=== PATIENT | male | born 1990 | race Caucasian/White ===

== ENCOUNTER 2016-10-02 09:40 | Day surgery (SDC) | payer MEDICARE, MEDICAID ==
[~2016-10-02 09:40] MED LIST: LACTATED RINGERS 1000 ML IV PRN; LIDOCAINE 0.5% INJ-PF (5 MG/ML) 50 ML SDV SUBCUT PRN
[2016-10-02] MEDS ORDERED: LIDOCAINE 2%/EPINEPHRINE INJ 1.7 ML CARTRIDGE ONE (10:23)
[2016-10-02] MEDS ORDERED: BUPIVACAINE HCL 0.5%/EPI 1:200000 INJ 1.8 ML CARTRIDGE ONE (10:23)
[2016-10-02] MEDS ORDERED: FENTANYL CITRATE INJ/PF 250 MCG/5 ML AMPULE ONE (12:03)
[2016-10-02] MEDS ORDERED: PROPOFOL INJ 200 MG/20 ML VIAL IV ONE (12:04)
[2016-10-02] MEDS ORDERED: MIDAZOLAM 2 MG/2 ML INJ ONE (12:04)
--- NOTE | 2016-10-02 13:15 | Operative Report ---
Operative Report DATE OF SURGERY: 10/02/16 PREOPERATIVE DIAGNOSIS: Dental caries POSTOPERATIVE DIAGNOSIS: Same OPERATION: Surgical removal of teeth numbers 2, 14, 15, 17, 18, 19, 28, 29 and 30 with alveoloplasties of the lower right and left quadrants SURGEON: JASS KELLY ANESTHESIA: GA TISSUE REMOVED OR ALTERED: Teeth which were discarded COMPLICATIONS: None ESTIMATED BLOOD LOSS: 20 mL INTRAOPERATIVE FINDINGS: Nonrestorable teeth PROCEDURE: The patient was brought into operating room #4 and placed on the operating room table in supine position. General anesthesia was induced via a peripheral IV and continued utilizing endotracheal intubation. The patient was prepped and draped in the usual fashion for an intraoral procedure. A total of 4 carpules 2 % lidocaine with 1: 100,000 epinephrine were delivered to the planned surgical sites via both infiltration and nerve block. The oral cavity and oropharynx were suctioned and a moistened oropharyngeal throat pack was placed. Full- thickness mucoperiosteal flaps were elevated. This was followed by ostectomy as needed. Teeth were delivered using elevators and forceps. After delivery of the teeth the sockets were curetted free of any debris and irrigated with normal saline solution. There was no sinus communication noted. The nerves were not seen and the mandible was intact postoperatively. A bite block was used throughout the procedure. Alveoloplasties were completed using rongeurs and bone files. The flaps were reapproximated and sutured using 4-0 chromic gut suture in an interrupted fashion. The oral cavity was suctioned and found to be free of debris. The throat pack was removed and the oropharynx suctioned. Gauze packs were placed bilaterally to aid in continued hemostasis The patient was awakened from general anesthesia, extubated in the operating room and taken to recovery room in spontaneous breathing fashion.
[2016-10-02] MEDS ORDERED: OXYCODONE-ACETAMINOPHEN 5-325 MG TABLET PO PRN (13:39)
[2016-10-02 15:21] VITALS: BP 128/87
== END 2016-10-02 15:15 | disposition home or self-care (01) ==
LOC: OROUT 09:40
PROVIDERS: ATTEND Dentist Oral and Maxillofacial Surgery
PROC: 0CDWXZ1 Extraction of Upper Tooth, Multiple, External Approach (ICD-10-PCS; 2016-10-02)
PROC: 0NQVXZZ Repair Left Mandible, External Approach (ICD-10-PCS; 2016-10-02)
PROC: 0NQTXZZ Repair Right Mandible, External Approach (ICD-10-PCS; 2016-10-02)
PROC: 0CDXXZ1 Extraction of Lower Tooth, Multiple, External Approach (ICD-10-PCS; principal; 2016-10-02 12:00)
DX: K02.9 Dental caries, unspecified (principal); Z79.899 Other long term (current) drug therapy; F84.0 Autistic disorder; P94.2 Congenital hypotonia
CPT/HCPCS: 41899; 41874 ×2; J2250; J3490; J3010; J2704; 170

== ENCOUNTER 2017-04-02 06:20 | Day surgery (SDC) | payer MEDICARE, MEDICAID ==
[2017-04-02] MEDS ORDERED: BUPIVACAINE HCL 0.5%/EPI 1:200000 INJ 1.8 ML CARTRIDGE ONE (08:05)
[2017-04-02] MEDS ORDERED: LIDOCAINE 2%/EPINEPHRINE INJ 1.7 ML CARTRIDGE ONE (08:05)
[2017-04-02] MEDS ORDERED: ONDANSETRON HCL INJ/PF 4 MG/2 ML SDV ONE (08:07)
[2017-04-02] MEDS ORDERED: PROPOFOL INJ 200 MG/20 ML VIAL IV ONE (08:07)
[2017-04-02] MEDS ORDERED: MIDAZOLAM 2 MG/2 ML INJ ONE (08:07)
--- NOTE | 2017-04-02 08:45 | Operative Report ---
Operative Report DATE OF SURGERY: 04/02/17 PREOPERATIVE DIAGNOSIS: Dental caries POSTOPERATIVE DIAGNOSIS: Same OPERATION: Surgical removal of teeth numbers 31 and 32 SURGEON: JASS KELLY ANESTHESIA: LMAC TISSUE REMOVED OR ALTERED: Teeth which were discarded COMPLICATIONS: None ESTIMATED BLOOD LOSS: Minimal INTRAOPERATIVE FINDINGS: Nonrestorable teeth PROCEDURE: The patient was brought into operating room #4 and placed on the operating room table in supine position. Adequate IV sedation was achieved by the anesthesia department. The patient was then prepped and draped in the usual fashion for an intraoral procedure. A total of 2 carpules of 2% Lidocaine with 1:100K Epi and 1 carpule of 0.5% Marcaine with 1:200K Epi were delivered to the planned surgical sites via both infiltration and nerve block. The oral cavity and oropharynx were suctioned and a moistened oropharyngeal throat screen was placed. A bite block was used throughout the procedure. Full thickness mucoperisteal flap was elevated. Ostectomy was completed. Teeth were delivered with elevators and forceps. All sites debrided. Mandible intact post op. JOCELYN not visualized. Surgifoam was placed into both sockets. Wound reapproximated and sutured with 4-0 chromic gut. The oral cavity was suctioned and found to be free of debris. The throat screen was removed. The oropharynx was suctioned. Gauze packs were placed bilaterally to aid in continued hemastasis. The patient was taken to recovery in spontaneous breathing fashion.
[2017-04-02] MEDS ORDERED: ONDANSETRON HCL INJ/PF 4 MG/2 ML SDV IV PRN (09:18)
[2017-04-02] MEDS ORDERED: OXYCODONE-ACETAMINOPHEN 5-325 MG TABLET PO PRN (09:19)
[2017-04-02 11:07] VITALS: BP 109/77
== END 2017-04-02 10:45 | disposition home or self-care (01) ==
LOC: OROUT 06:20
PROVIDERS: ATTEND Dentist Oral and Maxillofacial Surgery
PROC: 0CDXXZ1 Extraction of Lower Tooth, Multiple, External Approach (ICD-10-PCS; principal; 2017-04-02 08:00)
DX: K02.9 Dental caries, unspecified (principal); Z79.899 Other long term (current) drug therapy
CPT/HCPCS: 41899; J2250; J3490; J2405; J2704; 170